=== PATIENT | female | born 1935 | race Two or more races ===

== ENCOUNTER 2018-05-11 09:40 | Outpatient (CLI) | payer OTHER ==
[~2018-05-11 09:40] MED LIST: ATENOLOL25 MG PO; DIOVAN40 MG PO; LASIX20 MG PO
== END 2018-05-11 15:00 | disposition home or self-care (01) ==
LOC: MAMO-SONO 09:40
DX: C50.911 Malignant neoplasm of unspecified site of right female breast (principal); Z12.31 Encounter for screening mammogram for malignant neoplasm of breast